=== PATIENT | female | born 1970 | race Two or more races ===

== ENCOUNTER 2017-08-12 21:52 | Emergency (ER) | payer BC, OTHER ==
[2017-08-12] MEDS ORDERED: ASPIRIN 81 MG TABLET, CHEWABLE PO ONE (21:53)
[2017-08-12 22:35] LABS: ABSOLUTE BASOPHILS # (AUTO) 0.1 10^3/uL (0.0-0.2); ABSOLUTE EOSINOPHILS # (AUTO) 0.1 10^3/uL (0.0-0.6); ABSOLUTE LYMPHOCYTES (AUTO) 2.7 10^3/uL (0.5-4.7); ABSOLUTE MONOCYTES (AUTO) 0.7 10^3/uL (0.1-1.4); ABSOLUTE NEUT (AUTO) 7.1 10^3/uL (1.7-8.2); BASOPHILS % (AUTO) 0.5 % (0-2); EOSINOPHILS % (AUTO) 1.1 % (0-6); HEMATOCRIT 39.3 % (36.0-47.0); HEMOGLOBIN 13.4 g/dL (12.0-15.5); HGB HCT DIFFERENCE 0.9; LYMPHOCYTES % (AUTO) 25.2 % (13-45); MEAN CORPUSCULAR HEMOGLOBIN 30.5 pg (27.0-33.4); MEAN CORPUSCULAR VOLUME 90 fl (80-97); MONOCYTES % (AUTO) 6.7 % (3-13); RED BLOOD COUNT 4.38 10^6/uL (3.72-5.28); RED CELL DISTRIBUTION WIDTH 12.8 % (11.5-14.0); SEGMENTED NEUTROPHILS % (AUTO) 66.5 % (42-78); WHITE BLOOD COUNT 10.7 10^3/uL (4.0-10.5)
[2017-08-12 22:44] LABS: ALANINE AMINOTRANSFERASE 73 U/L (9-52); ALBUMIN 4.5 g/dL (3.5-5.0); ALKALINE PHOSPHATASE 91 U/L (38-126); ANION GAP 15 (5-19); ASPARTATE AMINO TRANSFERASE 31 U/L (14-36); BILIRUBIN,DIRECT 0.3 mg/dL (0.0-0.4); BILIRUBIN,TOTAL 0.3 mg/dL (0.2-1.3); BLOOD UREA NITROGEN 14 mg/dL (7-20); CALCIUM 9.8 mg/dL (8.4-10.2); CARBON DIOXIDE 27 mmol/L (22-30); CHLORIDE 101 mmol/L (98-107); CREATINE KINASE 84 U/L (30-135); CREATININE RESULT 0.64 mg/dL (0.52-1.25); GLUCOSE 104 mg/dL (75-110); SODIUM 142.7 mmol/L (137-145); TOTAL PROTEIN 7.3 g/dL (6.3-8.2)
[2017-08-12 22:55] LABS: CREATINE KINASE MB 0.41 ng/mL (<4.55)
[2017-08-12 22:57] LABS: TROPONIN I < 0.012 ng/mL
--- NOTE | 2017-08-12 23:02 | RADIOLOGY REPORT (SQ) ---
EXAM DESCRIPTION: CHEST SINGLE VIEW COMPLETED DATE/TIME: 08/12/2017 10:47 pm REASON FOR STUDY: CP COMPARISON: 2013. NUMBER OF VIEWS: One view. TECHNIQUE: Single frontal radiographic view of the chest acquired. LIMITATIONS: None. FINDINGS: LUNGS AND PLEURA: No opacities, masses or pneumothorax. No pleural effusion. MEDIASTINUM AND HILAR STRUCTURES: No masses. Contour normal. HEART AND VASCULAR STRUCTURES: Heart normal in size. Normal vasculature. BONES: No acute findings. HARDWARE: None in the chest. OTHER: No other significant finding. IMPRESSION: NO SIGNIFICANT RADIOGRAPHIC FINDING IN THE CHEST. TECHNICAL DOCUMENTATION: JOB ID: [id number] 1704 [employer]- All Rights Reserved
[2017-08-13] MEDS ORDERED: KETOROLAC TROMETHAMINE INJ/PF 30 MG/1 ML SDV IV ONE (00:02)
[2017-08-13] MEDS ORDERED: LIDOCAINE 5% (700 MG) TRANSDERMAL ADH..PATCH TP ONE (00:02)
--- NOTE | 2017-08-13 00:04 | ER Document Report ---
ED General - General Chief Complaint: Chest Pain > 30 Stated Complaint: CHEST PAIN Time Seen by Provider: 08/12/17 23:02 Notes: Patient is a 46-year-old female without past medical history, who presents with 24 hours of left-sided rib pain. She does describe this as a constant, severe, stabbing pain to her left lower ribs that is worsened by taking deep breaths. She has no history of similar symptoms in the past. She has not tried anything to improve the pain. She denies any known injury to the area although thinks when she may have done this when stretching several days ago. She has no history of DVT or pulmonary embolus. She does not use any form of estrogen. Denies any hemoptysis or unilateral leg swelling. She has not seen her primary doctor regarding today's concerns. TRAVEL OUTSIDE OF THE [place] IN LAST 30 DAYS: No - Related Data Allergies/Adverse Reactions: aspirin Adverse Reaction (Mild, Verified 05/30/16 09:33) Past Medical History - General Information source: Patient - Social History Smoking Status: Never Smoker Frequency of alcohol use: None Drug Abuse: None Lives with: Spouse/Significant other Family History: Reviewed & Not Pertinent Patient has suicidal ideation: No Patient has homicidal ideation: No - Past Medical History Cardiac Medical History: Denies: Hx Coronary Artery Disease, Hx Heart Attack, Hx Hypertension Pulmonary Medical History: Reports: Hx Asthma, Hx Bronchitis, Hx COPD - "SLIGHT " Denies: Hx Pneumonia Neurological Medical History: Denies: Hx Cerebrovascular Accident, Hx Seizures Renal/ Medical History: Denies: Hx Peritoneal Dialysis Musculoskeltal Medical History: Denies Hx Arthritis Past Surgical History: Denies: Hx Hysterectomy - Immunizations Hx Diphtheria, Pertussis, Tetanus Vaccination: Yes Review of Systems - Review of Systems Notes: Constitutional: Negative for fever. HENT: Negative for sore throat. Eyes: Negative for visual changes. Cardiovascular: Positive for chest pain. Respiratory: Negative for shortness of breath. Gastrointestinal: Negative for abdominal pain, vomiting or diarrhea. Genitourinary: Negative for dysuria. Musculoskeletal: Negative for back pain. Skin: Negative for rash. Neurological: Negative for headaches, weakness or numbness. 10 point ROS negative except as marked above and in HPI. Physical Exam - Vital signs Vitals: Temp Pulse Resp BP Pulse Ox 98.3 F 79 16 126/65 H 100 08/12/17 21:57 10/08/17 21:57 08/12/17 21:57 08/12/17 21:57 08/12/17 21:57 Interpretation: Normal Notes: PHYSICAL EXAMINATION: GENERAL: Well-appearing, well-nourished and in no acute distress. HEAD: Atraumatic, normocephalic. EYES: Pupils equal round and reactive to light, extraocular movements intact, sclera anicteric, conjunctiva are normal. ENT: nares patent, oropharynx clear without exudates. Moist mucous membranes. NECK: Normal range of motion, supple without lymphadenopathy LUNGS: Breath sounds clear to auscultation bilaterally and equal. No wheezes rales or rhonchi. HEART: Regular rate and rhythm without murmurs ABDOMEN: Soft, nontender, normoactive bowel sounds. No guarding, no rebound. No masses appreciated. EXTREMITIES: Normal range of motion, no pitting or edema. No cyanosis. NEUROLOGICAL: No focal neurological deficits. Moves all extremities spontaneously and on command. PSYCH: Normal mood, normal affect. SKIN: Warm, Dry, normal turgor, no rashes or lesions noted. Course - Re-evaluation Re-evalutation: 08/13/17 00:02 Patient presents with intercostal pain in the left lower ribs that has been present for the past 24 hours. Clinical history is not consistent with ACS, EKG unremarkable without ischemic changes and a single troponin is normal. Given the patient has been having pain for a full 24 hours serial troponins are not required to exclude an acute infarction event. Chest x-ray is clear without any evidence of an acute rib fracture or pneumothorax. She has no focal abdominal tenderness. Pulmonary embolus is on the consistent diagnostic consideration although patient is PERC criteria negative. However my pretest probability is slightly higher than 15% given that the pain is not reproducible on examination she has no obvious inciting event. I will therefore obtain a d- dimer. If this is normal plan for discharge home. 08/13/17 01:01 D-dimer is normal. Pain is improved after administration of ketorolac and topical lidocaine patch. At this time will discharge with return precautions and follow-up recommendations. Verbal discharge instructions given a the bedside and opportunity for questions given. Medication warnings reviewed. Patient is in agreement with this plan and has verbalized understanding of return precautions and the need for primary care follow-up in the next 24-72 hours. - Vital Signs Vital signs: Temp Pulse Resp BP Pulse Ox 98.3 F 79 16 103/61 97 08/12/17 21:57 08/12/17 21:57 08/13/17 01:31 08/13/17 01:31 08/13/17 01:31 - Laboratory Result Diagrams: 08/12/17 22:22 08/12/17 22:22 Laboratory results interpreted by me: 08/12/17 08/12/17 22:22 22:22 WBC 10.7 H ALT 73 H - Diagnostic Test Radiology reviewed: Image reviewed, Reports reviewed Radiology results interpreted by me: 08/13/17 00:03 Chest x-ray: No acute infiltrate or pneumothorax - EKG Interpretation by Me Additional EKG results interpreted by me: 08/13/17 00:03 Sinus rhythm. Rate 79. No ST elevations or depressions. QTC is 455. Discharge - Discharge Clinical Impression: Rib pain on left side, Costochondritis Condition: Good Disposition: HOME, SELF-CARE Additional Instructions: Your chest wall pain is due to inflammation of your ribs. This pain can last for up to 6 weeks. It is very important that you continue to take purposeful deep breaths. For your pain: Continue to take ibuprofen 600 mg every 6 hours or Tylenol 1000 mg every 6 hours. Apply local lidocaine to the area per bottle instructions. There is a product sold [id number] called "Aspercreme with lidocaine" that you can use for this purpose. Please follow-up with her primary care doctor in the next 2-3 days. Return to the emergency department immediately if you develop worsening shortness of breath, increased pain, begin coughing blood, pass out, or have any other symptoms that are worrisome to you. Referrals: DUNIA WARNER MD [Primary Care Provider] - Follow up as needed
[2017-08-13 01:51] VITALS: BP 103/61
--- NOTE | 2017-08-13 06:23 | EKG REPORT ---
SEVERITY:- ABNORMAL ECG - SINUS ARRHYTHMIA, RATE 56-96 PROBABLE ANTEROSEPTAL INFARCT, AGE INDETERM NONSPECIFIC T ABNORMALITIES, INFERIOR LEADS : Confirmed by: Casandra Oseguera MD 13-Aug-2017 06:22:58
== END 2017-08-13 01:30 | disposition home or self-care (01) ==
LOC: ER 21:52
DX: M94.0 Chondrocostal junction syndrome [Tietze] (principal); R07.81 Pleurodynia; J45.909 Unspecified asthma, uncomplicated; J44.9 Chronic obstructive pulmonary disease, unspecified; Z88.6 Allergy status to analgesic agent
CPT/HCPCS: 93005; 99285; 96374; 36415; 82553; 82550; 85025; 80053; 84484; 85379; 71010; 93010; J1885

== ENCOUNTER 2019-03-13 21:08 | Emergency (ER) | payer BC, OTHER ==
[2019-03-14] MEDS ORDERED: NORMAL SALINE 1000 ML 1,000 ML IV ONE (00:06)
[2019-03-14] MEDS ORDERED: DIPHENHYDRAMINE HCL 50 MG/ML VIAL IV ONE (00:06)
[2019-03-14] MEDS ORDERED: ONDANSETRON HCL INJ/PF 4 MG/2 ML SDV IV ONE (00:07)
[2019-03-14] MEDS ORDERED: KETOROLAC TROMETHAMINE INJ/PF 30 MG/1 ML SDV IV ONE (00:07)
--- NOTE | 2019-03-14 00:15 | ER Document Report ---
ED Medical Screen (RME) - General Chief Complaint: Epigastric Pain Stated Complaint: NAUSEA,HEADACHE Time Seen by Provider: 03/14/19 00:04 Notes: Patient is a 48-year female comes emergency room complaining of major headache. Patient states that headache is making her feel like she wants to vomit very badly she also states that she has had some abdominal pain and discomfort but states this more it midepigastric and feels like her reflux this not responding to medication. She has had headaches in the past but this 1 is totally different. Patient also states that she is scheduled in 6:00 this morning to have a exploratory hysteroscope by her [employer]INE [employer]PERINTENDENT because of postmenopausal bleeding. TRAVEL OUTSIDE OF THE [place] IN LAST 30 DAYS: No - HPI Onset: Other - With progression into the day and becoming worse Onset/Duration: Gradual, Persistent, Worse Quality of pain: Sharp, Throbbing Severity: Severe Pain Level: 4 Associated Symptoms: Abdominal pain Exacerbated by: Denies Relieved by: Denies Similar symptoms previously: Yes Recently seen / treated by doctor: Yes - Related Data Smoking: Non-smoker Frequency of alcohol use: Rare Drug Abuse: None Allergies/Adverse Reactions: aspirin Adverse Reaction (Mild, Verified 05/30/16 09:33) Past Medical History - General Information source: Patient, Relative - Social History Cigarette use (# per day): No Chew tobacco use (# tins/day): No Frequency of alcohol use: None Drug Abuse: None Lives with: Family Family history: Reviewed & Not Pertinent - Past Medical History Cardiac Medical History: Denies: Hx Coronary Artery Disease, Hx Heart Attack, Hx Hypertension Pulmonary Medical History: Reports: Hx Asthma, Hx Bronchitis, Hx COPD - "SLIGHT" Denies: Hx Pneumonia Neurological Medical History: Denies: Hx Cerebrovascular Accident, Hx Seizures Renal/ Medical History: Denies: Hx Peritoneal Dialysis Musculoskeltal Medical History: Denies Hx Arthritis Past Surgical History: Denies: Hx Hysterectomy - Immunizations Hx Diphtheria, Pertussis, Tetanus Vaccination: Yes History of Influenza Vaccine for 08/2017 - 01/2018 Season: Yes Influenza Administration Date for 08/2017 - 01/2018 Season: 08/05/17 Review of Systems - Review of Systems Constitutional: No symptoms reported EENT: No symptoms reported Cardiovascular: No symptoms reported Respiratory: No symptoms reported Gastrointestinal: See HPI, Abdominal pain Genitourinary: No symptoms reported Female Genitourinary: No symptoms reported Musculoskeletal: No symptoms reported Skin: No symptoms reported Hematologic/Lymphatic: No symptoms reported Neurological/Psychological: See HPI, Headaches -: Yes All other systems reviewed and negative Physical Exam - Vital signs Vitals: Temp Pulse Resp BP Pulse Ox 98.0 F 67 16 118/70 99 03/13/19 21:28 03/13/19 21:28 03/13/19 21:28 03/13/19 21:28 03/13/19 21:28 Interpretation: Normal - Notes Notes: PHYSICAL EXAMINATION: GENERAL: Well-nourished well-developed 48-year-old female who appears very anxious on physical exam. HEAD: Atraumatic, normocephalic. EYES: Pupils equal round and reactive to light, extraocular movements intact, conjunctiva are normal. NECK: Examination patient's area of complaint is her cervical spine primarily right side reproducible tenderness to palpation on the right lower portion of the cervical spine. Patient has full range of motion but with some difficulty with rotation to the left. Right is not is prominent. There does not appear to be any meningeal signs LUNGS: Breath sounds clear to auscultation bilaterally and equal. No wheezes rales or rhonchi. HEART: Regular rate and rhythm without murmurs ABDOMEN: Soft, nontender, nondistended abdomen. No guarding, no rebound. No masses appreciated. Female : deferred Musculoskeletal: Normal range of motion, no pitting or edema. No cyanosis. NEUROLOGICAL: Normal speech, normal gait. Normal sensory, motor exams PSYCH: Normal mood, normal affect. SKIN: Warm, Dry, normal turgor, no rashes or lesions noted. Course - Re-evaluation Re-evalutation: 03/14/19 00:14 Physical examination shows patient to be very anxious she cannot sit still her feet are constantly jiggling up-and-down and she rambles more than answers questions. - Vital Signs Vital signs: Temp Pulse Resp BP Pulse Ox 98.0 F 67 16 118/70 99 03/13/19 21:28 03/13/19 21:28 03/13/19 21:28 03/13/19 21:28 03/13/19 21:28
[2019-03-14 00:23] LABS: APPEARANCE,URINE CLEAR; BILIRUBIN,URINE NEGATIVE (NEGATIVE); COLOR,URINE YELLOW; GLUCOSE, URINE NEGATIVE (NEGATIVE); KETONES,URINE NEGATIVE (NEGATIVE); LEUKOCYTE ESTERASE,URINE NEGATIVE (NEGATIVE); NITRITE,URINE NEGATIVE (NEGATIVE); PROTEIN,URINE NEGATIVE (NEGATIVE); URINE SPECIFIC GRAVITY 1.011; UROBILINOGEN,URINE NEGATIVE mg/dL (<2.0)
[2019-03-14 00:39] LABS: ABSOLUTE BASOPHILS # (AUTO) 0.1 10^3/uL (0.0-0.2); ABSOLUTE EOSINOPHILS # (AUTO) 0.1 10^3/uL (0.0-0.6); ABSOLUTE MONOCYTES (AUTO) 0.4 10^3/uL (0.1-1.4); ABSOLUTE NEUT (AUTO) 5.7 10^3/uL (1.7-8.2); BASOPHILS % (AUTO) 0.8 % (0-2); HEMATOCRIT 41.1 % (36.0-47.0); HEMOGLOBIN 13.8 g/dL (12.0-15.5); LYMPHOCYTES % (AUTO) 24.3 % (13-45); MEAN CORPUSCULAR HEMOGLOBIN 29.9 pg (27.0-33.4); MEAN CORPUSCULAR HGB CONC 33.6 g/dL (32.0-36.0); MEAN CORPUSCULAR VOLUME 89 fl (80-97); MONOCYTES % (AUTO) 5.1 % (3-13); PLATELET COUNT 320 10^3/uL (150-450); RED BLOOD COUNT 4.62 10^6/uL (3.72-5.28); RED CELL DISTRIBUTION WIDTH 12.4 % (11.5-14.0); SEGMENTED NEUTROPHILS % (AUTO) 68.8 % (42-78); TOTAL CELLS COUNTED % (AUTO) 100 %; WHITE BLOOD COUNT 8.3 10^3/uL (4.0-10.5)
[2019-03-14 00:52] LABS: ALANINE AMINOTRANSFERASE 55 U/L (9-52); ALBUMIN 4.6 g/dL (3.5-5.0); ALKALINE PHOSPHATASE 92 U/L (38-126); ANION GAP 8 (5-19); ASPARTATE AMINO TRANSFERASE 28 U/L (14-36); BILIRUBIN,DIRECT 0.2 mg/dL (0.0-0.4); BILIRUBIN,TOTAL 0.6 mg/dL (0.2-1.3); BLOOD UREA NITROGEN 15 mg/dL (7-20); CALCIUM 10.1 mg/dL (8.4-10.2); CARBON DIOXIDE 30 mmol/L (22-30); CHLORIDE 101 mmol/L (98-107); GLUCOSE 121 mg/dL (75-110); POTASSIUM 4.4 mmol/L (3.6-5.0); SODIUM 138.9 mmol/L (137-145); TOTAL PROTEIN 7.8 g/dL (6.3-8.2)
[2019-03-14] MEDS ORDERED: METOCLOPRAMIDE HCL INJ/PF 10 MG/2 ML SDV IV ONE (02:19)
[2019-03-14 03:21] VITALS: BP 101/69
--- NOTE | 2019-03-14 04:47 | ER Document Report ---
Entered by EDIN HARRISON SCRIBE 03/14/19 0225 Acting as scribe for:ALEX PONCE DO ED General - General Chief Complaint: Epigastric Pain Stated Complaint: NAUSEA,HEADACHE Time Seen by Provider: 03/14/19 00:04 Mode of Arrival: Ambulatory Information source: Patient Notes: Patient is a 48 year old female presenting to the emergency department complaining of nausea, abdominal pain and a headache. Patient states she has a history of abdominal pain and acid reflux and is following up with GI. She states she has been placed on different medications including omeprazole and rabeprazole. Patient states she feels these medications have not been working and believes the rabeprazole is causing her headaches. She states her headache is located at her temples and radiates into the nape of her neck on the right. She states she woke up yesterday and initially thought her headache and abdominal pain were attributed to being hungry so she proceeded to eat breakfast which exacerbated her abdominal pain. Patient states her symptoms have been progressively worsening since. She states "I just feel like there is a lot of air in my body". She also complains of nausea and dry heaving. She denies any blurry vision, fevers, sore throat, rhinorrhea, earaches, diarrhea, vomiting or bloody stools. Of note, patient is scheduled a hysteroscopy in a few hours and refuses p.o. intake and Toradol. Patient states her GI specialist is Dr. Anna in [place]. TRAVEL OUTSIDE OF THE [place] IN LAST 30 DAYS: No - Related Data Allergies/Adverse Reactions: aspirin Adverse Reaction (Mild, Verified 05/30/16 09:33) Past Medical History - General Information source: Patient, Relative - Social History Smoking Status: Never Smoker Cigarette use (# per day): No Chew tobacco use (# tins/day): No Frequency of alcohol use: None Drug Abuse: None Lives with: Family Family History: Reviewed & Not Pertinent Patient has suicidal ideation: No Patient has homicidal ideation: No Pulmonary Medical History: Reports: Hx Asthma, Hx Bronchitis, Hx COPD - "SLIGHT" - Immunizations Hx Diphtheria, Pertussis, Tetanus Vaccination: Yes Review of Systems - Review of Systems Constitutional: No symptoms reported EENT: No symptoms reported Cardiovascular: No symptoms reported Respiratory: No symptoms reported Gastrointestinal: See HPI, Abdominal pain, Nausea Genitourinary: No symptoms reported Female Genitourinary: No symptoms reported Musculoskeletal: No symptoms reported Skin: No symptoms reported Hematologic/Lymphatic: No symptoms reported Neurological/Psychological: See HPI, Headaches -: Yes All other systems reviewed and negative Physical Exam - Vital signs Vitals: Temp Pulse Resp BP Pulse Ox 98.0 F 67 16 118/70 99 03/13/19 21:28 03/13/19 21:28 03/13/19 21:28 03/13/19 21:28 03/13/19 21:28 - Notes Notes: GENERAL: Alert, interacts well. No acute distress. HEAD: Normocephalic, atraumatic. No tenderness to percussion to the sinuses. EYES: Pupils equal, round, and reactive to light. Extraocular movements intact. ENT: Oral mucosa moist, tongue midline. Nares patent, no nasal septal hematoma, TMs intact, small amount of clear fluid behind left TM. NECK: Full range of motion. Supple. Trachea midline. Chin to chest testing intact. LUNGS: Clear to auscultation bilaterally, no wheezes, rales, or rhonchi. No respiratory distress. HEART: Regular rate and rhythm. No murmurs, gallops, or rubs. ABDOMEN: Soft, epigastric and suprapubic tenderness to palpation. Non-distended. Bowel sounds present in all 4 quadrants. No guarding, rigidity, or rebound. EXTREMITIES: Moves all 4 extremities spontaneously. No edema, radial and dorsalis pedis pulses 2/4 bilaterally. No cyanosis. NEUROLOGICAL: Alert and oriented x3. Normal speech. Cranial nerves II through XII grossly intact. Biceps and patellar DTRs 2+ bilaterally. PSYCH: Normal affect, normal mood. SKIN: Warm, dry, normal turgor. No rashes or lesions noted. Course - Re-evaluation Re-evalutation: 03/14/19 02:20 CBC unremarkable, CMP grossly unremarkable, lipase normal, urinalysis unremarkable, test negative. Neurologically intact, no meningeal signs. This headache has been going on intermittently for several days, not thunderclap in nature, has been getting progressively worse rather than maximal intensity at onset. Patient refuses Toradol due to the fact that she has a hysteroscopy at 8 AM this morning. Due to the hysteroscopy she also declines any oral medication including GI cocktail. Patient is recommended to keep taking the rabeprazole until she speaks with her GI doc. Recommend to start taking Carafate and to be discharged home to have her hysteroscopy in a few hours. Recommended to return to the emergency department after the procedure if she is still having significant pain and we will try full migraine cocktail as well as GI cocktail. Discharged to home. - Vital Signs Vital signs: Temp Pulse Resp BP Pulse Ox 97.4 F 84 16 101/69 99 03/14/19 03:00 03/14/19 03:00 03/14/19 03:00 03/14/19 03:00 03/13/19 21:28 - Laboratory Result Diagrams: 03/14/19 00:24 03/14/19 00:24 Laboratory results interpreted by me: 03/14/19 00:24 Glucose 121 H ALT 55 H Discharge - Discharge Clinical Impression: Epigastric abdominal pain, Right temporal headache Condition: Stable Disposition: HOME, SELF-CARE Additional Instructions: It is possible that your headache is coming from a side effect of the rabeprazole. It is also possible that it is coming from muscle tension in your neck. I would continue taking your rabeprazole until you have spoken with your GI doc to make sure that it is safe to stop taking it after only a few weeks. Please take the Carafate at least 1 hour after all medications. If after your procedure in the morning you are still having significant headache or significant abdominal pain and he would like to try some of the treatments we suggested tonight please return to the emergency department we would be happy to see you again. Prescriptions: Sucralfate [Carafate] 1 gm PO ACHSP PRN #[id number] oral.susp PRN Reason: I personally performed the services described in the documentation, reviewed and edited the documentation which was dictated to the scribe in my presence, and it accurately records my words and actions.
== END 2019-03-14 03:10 | disposition home or self-care (01) ==
LOC: ER 21:08
DX: K21.9 Gastro-esophageal reflux disease without esophagitis (principal); Z79.899 Other long term (current) drug therapy; R51 Headache; R10.9 Unspecified abdominal pain; R11.0 Nausea; J45.909 Unspecified asthma, uncomplicated
CPT/HCPCS: 99284; 96374; 96375; 36415; 83690; 85025; 81025; 80053; 81001; J1200; J2765; J2405; J7030

== ENCOUNTER 2019-05-23 05:29 | Day surgery (SDC) | payer BC, OTHER ==
[2019-03-12 11:02] LABS: HEMATOCRIT 40.6 % (36.0-47.0); HEMOGLOBIN 13.5 g/dL (12.0-15.5); MEAN CORPUSCULAR HEMOGLOBIN 29.5 pg (27.0-33.4); MEAN CORPUSCULAR HGB CONC 33.3 g/dL (32.0-36.0); MEAN CORPUSCULAR VOLUME 89 fl (80-97); PLATELET COUNT 300 10^3/uL (150-450); RED BLOOD COUNT 4.58 10^6/uL (3.72-5.28); RED CELL DISTRIBUTION WIDTH 12.5 % (11.5-14.0); WHITE BLOOD COUNT 6.3 10^3/uL (4.0-10.5)
[2019-03-12 11:05] LABS: APPEARANCE,URINE CLEAR; BILIRUBIN,URINE NEGATIVE (NEGATIVE); COLOR,URINE YELLOW; GLUCOSE, URINE NEGATIVE (NEGATIVE); KETONES,URINE NEGATIVE (NEGATIVE); LEUKOCYTE ESTERASE,URINE NEGATIVE (NEGATIVE); NITRITE,URINE NEGATIVE (NEGATIVE); PROTEIN,URINE NEGATIVE (NEGATIVE); URINE SPECIFIC GRAVITY 1.017; UROBILINOGEN,URINE NEGATIVE mg/dL (<2.0)
[2019-03-12 11:18] LABS: ANION GAP 12 (5-19); BLOOD UREA NITROGEN 14 mg/dL (7-20); CALCIUM 10.1 mg/dL (8.4-10.2); CARBON DIOXIDE 31 mmol/L (22-30); CHLORIDE 101 mmol/L (98-107); GLUCOSE 93 mg/dL (75-110); POTASSIUM 4.2 mmol/L (3.6-5.0); SODIUM 143.6 mmol/L (137-145)
--- NOTE | 2019-03-12 20:07 | EKG REPORT ---
SEVERITY:- ABNORMAL ECG - SINUS RHYTHM NONSPECIFIC T ABNORMALITIES, INFERIOR LEADS : Confirmed by: Casandra Oseguera MD 12-Mar-2019 20:06:06
[2019-05-21 09:57] LABS: HEMATOCRIT 40.2 % (36.0-47.0); HEMOGLOBIN 13.3 g/dL (12.0-15.5); MEAN CORPUSCULAR HEMOGLOBIN 29.5 pg (27.0-33.4); MEAN CORPUSCULAR HGB CONC 33.1 g/dL (32.0-36.0); MEAN CORPUSCULAR VOLUME 89 fl (80-97); PLATELET COUNT 280 10^3/uL (150-450); RED CELL DISTRIBUTION WIDTH 13.1 % (11.5-14.0); WHITE BLOOD COUNT 5.7 10^3/uL (4.0-10.5)
[2019-05-21 09:57] LABS: APPEARANCE,URINE SLIGHTLY-CLOUDY; BILIRUBIN,URINE NEGATIVE (NEGATIVE); COLOR,URINE YELLOW; GLUCOSE, URINE NEGATIVE (NEGATIVE); KETONES,URINE NEGATIVE (NEGATIVE); LEUKOCYTE ESTERASE,URINE NEGATIVE (NEGATIVE); NITRITE,URINE NEGATIVE (NEGATIVE); PROTEIN,URINE NEGATIVE (NEGATIVE); URINE SPECIFIC GRAVITY 1.021; UROBILINOGEN,URINE NEGATIVE mg/dL (<2.0)
[2019-05-21 10:01] LABS: ADD MANUAL MICROSCOPIC YES
[2019-05-21 10:02] LABS: BACTERIA,URINE 1+ /HPF; WBC,URINE 0-1 /HPF
[2019-05-21 10:25] LABS: ANION GAP 8 (5-19); BLOOD UREA NITROGEN 12 mg/dL (7-20); CALCIUM 9.5 mg/dL (8.4-10.2); CARBON DIOXIDE 25 mmol/L (22-30); CHLORIDE 109 mmol/L (98-107); GLUCOSE 93 mg/dL (75-110); POTASSIUM 4.3 mmol/L (3.6-5.0)
[~2019-05-23 05:29] MED LIST: CEFAZOLIN 1 GM/D5W RTU 0 GM/0 ML RTUPB IV ONE; CEFAZOLIN 1 GM/D5W RTU 1 GM/50 ML RTUPB IV PRN; LACTATED RINGERS 1000 ML IV PRN; LIDOCAINE 0.5% INJ-PF (5 MG/ML) 50 ML SDV SUBCUT PRN
[2019-05-23] MEDS ORDERED: CEFAZOLIN 1 GM/D5W RTU 1 GM/50 ML RTUPB IV ONE (05:36)
[2019-05-23] MEDS ORDERED: ALBUTEROL SULFATE 0.083% NEB 2.5 MG/3 ML AMPUL NEB ONE ×2 (06:07→06:45)
[2019-05-23] MEDS ORDERED: PROPOFOL INJ 200 MG/20 ML VIAL IV ONE (06:23)
[2019-05-23] MEDS ORDERED: MIDAZOLAM 2 MG/2 ML INJ ONE (06:23)
[2019-05-23] MEDS ORDERED: ONDANSETRON HCL INJ/PF 4 MG/2 ML SDV ONE (06:23)
[2019-05-23] MEDS ORDERED: FENTANYL CITRATE INJ/PF 100 MCG/2 ML AMPUL ONE (06:23)
[2019-05-23] MEDS ORDERED: LIDOCAINE 0.5% INJ-PF (5 MG/ML) 50 ML SDV ONE (06:24)
[2019-05-23] MEDS ORDERED: SCOPOLAMINE HYDROBROMIDE 1.5 MG PATCH.TD72 ONE (07:13)
[2019-05-23] MEDS ORDERED: MEPERIDINE HCL/PF INJ 25 MG/1 ML DISP.SYRIN IV PRN (07:30)
[2019-05-23] MEDS ORDERED: ONDANSETRON HCL INJ/PF 4 MG/2 ML SDV IV PRN (07:30)
[2019-05-23] MEDS ORDERED: FENTANYL CITRATE INJ/PF 100 MCG/2 ML AMPUL IV PRN ×3 (07:30)
[2019-05-23] MEDS ORDERED: DIPHENHYDRAMINE HCL 50 MG/ML VIAL IV PRN (07:30)
[2019-05-23] MEDS ORDERED: PROMETHAZINE HCL INJ 25 MG/1 ML VIAL IV PRN ×2 (07:30)
[2019-05-23] MEDS ORDERED: MORPHINE SULFATE 10 MG/ML INJ IV PRN (07:30)
--- NOTE | 2019-05-23 07:55 | OPERATIVE REPORT E ---
Operative Report NAME: LISETTE CARLSON : 1970 AGE: 48Y DATE OF SURGERY: 05/23/2019 ROOM: PREOPERATIVE DIAGNOSIS: Postmenopausal bleeding. POSTOPERATIVE DIAGNOSIS: Postmenopausal bleeding. OPERATION: Hysteroscopy D and C. SURGEON: SHIRA PEREZ M.D. ANESTHESIA: General endotracheal. COMPLICATIONS: None. FINDINGS: Normal intrauterine cavity. Normal tubal ostia. EUA demonstrated no masses. Bladder was left undrained. INDICATIONS FOR PROCEDURE: The patient had multiple episodes of postmenopausal bleeding documented by menopausal FSH. Outpatient biopsy was benign. Persistence of bleeding necessitated operative hysteroscopy for definitive clinical decision making. The usual risks of bleeding, infection, anesthesia, and damage to the organs and tissues have been discussed with the patient who understood. PROCEDURE: The patient was taken to the operating room and placed in the modified lithotomy position once adequate anesthesia was ascertained, prepped and draped in the usual manner for a hysteroscopy. Antibiotics had been given. Surgical time out was performed. The uterus was sounded, dilated to admit an operative hysteroscope, and the above-noted findings were appreciated. D and C followed, which was productive of a small amount of tissue. At the completion of the procedure all instruments were removed. Bleeding was nil. Tissue was sent to pathology. The patient was taken to recovery in stable condition. DICTATING PHYSICIAN: SHIRA PEREZ M.D. [id number] PHY#: [id number] ID: [id number] JOB#: [id number] ACCT: [id number] cc:SHIRA PEREZ M.D. >
[2019-05-23] MEDS ORDERED: OXYCODONE-ACETAMINOPHEN 5-325 MG TABLET PO PRN (08:06)
[2019-05-23] MEDS ORDERED: PROMETHAZINE HCL INJ 25 MG/1 ML VIAL IM PRN (08:06)
[2019-05-23] MEDS ORDERED: ACETAMINOPHEN 1,000 MG/100 ML RTUPB IV ONE (08:17)
[2019-05-23] MEDS ORDERED: IBUPROFEN 800 MG TABLET ONE (08:38)
[2019-05-23] MEDS ORDERED: IBUPROFEN 800 MG TABLET PO SCH (10:00)
[2019-05-23 10:27] VITALS: BP 109/70
[2019-05-23] MEDS ORDERED: SUCCINYLCHOLINE CHLORIDE INJ 200 MG/10 ML VIAL ONE (12:00)
[2019-05-23] MEDS ORDERED: METOCLOPRAMIDE HCL INJ/PF 10 MG/2 ML SDV ONE (12:00)
== END 2019-05-23 09:40 | disposition home or self-care (01) ==
LOC: OROUT 05:29
PROVIDERS: ATTEND Specialist
DX: N95.0 Postmenopausal bleeding (principal); J45.909 Unspecified asthma, uncomplicated; Z79.51 Long term (current) use of inhaled steroids
CPT/HCPCS: 93005; 86900 ×2; 86901 ×2; 36415 ×2; 86850 ×2; 85027 ×2; 81025; 80048 ×2; 81001 ×2; 88305 ×2; 93010; 00952; 58558; J2250; J0690; J3010; J3490; J2765; J0330; J2405; J2704; J0131; 952